=== PATIENT | male | born 1995 | race Caucasian/White ===

== ENCOUNTER 2020-10-10 05:51 | Emergency (ER) | payer OTHER ==
[2020-10-10 06:42] LABS: BASOPHIL 0.6 % (0-2); EOSINOPHIL 0.8 % (0-5); HGB 14.2 g/dl (13.2-18.0); LYMPHOCYTE 22.1 % (15-48); MCH 30.5 pg (25.0-31.0); MCHC 34.6 g/dL (32.0-36.0); MCV 88.2 fL (78.0-100.0); MONOCYTE 7.8 % (0-12); MPV 10.2 fL (6.0-9.5); NEUTROPHIL 68.5 % (41-80); NRBC 0; PLT 258 K/uL (150-400); RBC 4.65 M/uL (4.70-6.00); RDW 12.1 % (11.5-14.0); WBC 9.3 K/uL (4.0-10.5)
[2020-10-10 06:53] LABS: AMPHETAMINES NEGATIVE (NEGATIVE); BARBITURATES NEGATIVE (NEGATIVE); ECSTASY (MDMA) NEGATIVE (NEGATIVE); MARIJUANA (THC) NEGATIVE (NEGATIVE); METHADONE NEGATIVE (NEGATIVE); OPIATES NEGATIVE (NEGATIVE); OXYCODONE NEGATIVE (NEGATIVE)
[2020-10-10 06:53] LABS: BILIRUBIN NEGATIVE (NEGATIVE); BLOOD NEGATIVE Ery/uL (NEGATIVE); CLARITY CLEAR (CLEAR); COLOR YELLOW (YELLOW); GLUCOSE (U) NORMAL (NORMAL); LEUKOCYTES NEGATIVE Leu/uL (NEGATIVE); NITRITE NEGATIVE (NEGATIVE); PROTEIN NEGATIVE (NEGATIVE); UROBILINOGEN 0.2 mg/dL (0.2-1.0)
[2020-10-10 07:03] LABS: ACETAMINOPHEN (TYLENOL) < 2.0 ug/mL (10.0-30.0); ALBUMIN 4.2 g/dL (3.4-5.0); ALKALINE PHOSHATASE 124 U/L (46-116); ALT 21 U/L (16-63); AST 9 U/L (15-37); BILIRUBIN - TOTAL 0.2 mg/dL (0.2-1.0); BUN 14 mg/dL (7-18); CHLORIDE 103 mmol/L (98-107); CO2 (BICARBONATE) 27 mmol/L (21-32); GLOBULIN (CALCULATION) 3.3 g/dL; GLUCOSE 101 mg/dL (74-106); POTASSIUM 3.9 mmol/L (3.5-5.1); TOTAL PROTEIN 7.5 g/dL (6.4-8.2)
== END 2020-10-10 13:58 ==
LOC: FER 05:51
PROVIDERS: Emergency Medicine Emergency Medical Services
DX: R45.851 Suicidal ideations (principal); F41.9 Anxiety disorder, unspecified; F32.9 Major depressive disorder, single episode, unspecified; Z88.0 Allergy status to penicillin; Z88.1 Allergy status to other antibiotic agents; Z88.8 Allergy status to other drugs, medicaments and biological substances; Z79.899 Other long term (current) drug therapy; Z20.822 Contact with and (suspected) exposure to COVID-19
CPT/HCPCS: 36415; 80053; 80305; 81003; 85025; 99285; G0480; U0002